=== PATIENT | male | born 1990 | race American Indian/Alaskan Native ===

== ENCOUNTER 2018-08-15 04:29 | Emergency (ER) | payer MEDICAID ==
[2018-08-15 04:41] VITALS: RESP 18; O2SAT 100
--- NOTE | 2018-08-15 05:13 | ED PDOC ---
HPI: Psych/Substance Abuse Time Seen by Provider: 08/15/18 04:42 Chief Complaint (Nursing): Psychiatric Evaluation Chief Complaint (Provider): Psychiatric Evaluation History Per: Patient History/Exam Limitations: no limitations Additional Complaint(s): 28 years old male with history of OCD brought in by EMS for psychiatric evaluation. Patient reports he was walking on street as "he was on a journey." He is homeless and states the world is his long term. Patient reports he is supposed to see a therapist but does not see one. Patient denies suicidal or homicidal ideation and auditory hallucinations. Pt denies any other complaints at this time Pt denies alcohol use, when asked about drug use he states "crystalinum.. nevermind" PMD: None provided Past Medical History Reviewed: Historical Data, Nursing Documentation, Vital Signs Vital Signs: Last Vital Signs Temp 97.8 F 08/15/18 04:32 Pulse 91 H 08/15/18 04:32 Resp 18 08/15/18 04:32 BP 141/96 H 08/15/18 04:32 Pulse Ox 100 08/15/18 04:32 Primary Care Provider: FAMILY PROVIDER,NO - Medical History Other PMH: OCD - Surgical History Surgical History: No Surg Hx - Family History Family History: States: Unknown Family Hx - Social History Alcohol: None (Patient states he wishes to drink alcohol) Drugs: Other (unsure) - Home Medications Home Medications: Ambulatory Orders Medication Instructions Recorded No Known Home Med 08/15/18 - Allergies Allergies/Adverse Reactions: Allergies Allergy/AdvReac Type Severity Reaction Status Date / Time No Known Allergies Allergy Verified 08/15/18 22:23 Review of Systems ROS Statement: Except As Marked, All Systems Reviewed And Found Negative Neurological: Negative for: Weakness, Numbness, Altered Mental Status, Headache Psych: Negative for: Anxiety, Suicidal ideation (or homicidal), Other (auditory hallucinations) Physical Exam - Reviewed Nursing Documentation Reviewed: Yes Vital Signs Reviewed: Yes - Physical Exam Appears: Positive for: No Acute Distress Head Exam: Positive for: ATRAUMATIC, NORMOCEPHALIC Skin: Positive for: Normal Color, Warm, Dry Eye Exam: Positive for: Normal appearance, EOMI, PERRL ENT: Positive for: Normal ENT Inspection Neck: Positive for: Normal, Painless ROM, Supple Cardiovascular/Chest: Positive for: Regular Rate, Rhythm. Negative for: Murmur Gastrointestinal/Abdominal: Positive for: Normal Exam, Soft. Negative for: Tenderness Back: Positive for: Normal Inspection. Negative for: L CVA Tenderness, R CVA Tenderness Extremity: Positive for: Normal ROM. Negative for: Pedal Edema, Deformity Neurological/Psych: Positive for: Awake, Alert, Oriented, Mood/Affect (Bizarre affect), Other (Responding to internal stimuli. Rhyming words. Flight of ideas.) - Laboratory Results Result Diagrams: 08/15/18 05:14 08/15/18 05:14 - ECG O2 Sat by Pulse Oximetry: 100 (RA) Pulse Ox Interpretation: Normal Medical Decision Making Medical Decision Making: Time: 0450 Initial plan: --Workup --Crisis evaluation 0600 pt told crisis screened that he has a history of bipolar and is visiting from [place], pending further crisis eval and maye, Dr. Huizar to wait for dispo Scribe Attestation: Documented by Franny Longo, acting as a scribe for NOLBERTO Kauffman. Provider Scribe Attestation: All medical record entries made by the Scribe were at my direction and personally dictated by me. I have reviewed the chart and agree that the record accurately reflects my personal performance of the history, physical exam, medical decision making, and the department course for this patient. I have also personally directed, reviewed, and agree with the discharge instructions and disposition. Disposition - Clinical Impression Clinical Impression: Stimulant abuse - Disposition Disposition Time: 06:00 Condition: STABLE Instructions: Drug Abuse and Drug Addiction (DC) Forms: [employer] ([place]er) Print Language: ESTONIAN - POA Present On Arrival: None
[2018-08-15 05:23] LABS: BASO % 0.8 % (0.0-2.0); EOS # 0.1 K/uL (0.0-0.7); EOS % 1.4 % (0.0-4.0); HEMOGLOBIN 12.6 g/dL (12.0-18.0); LYMPH # 2.2 K/uL (1.0-4.3); LYMPH % 37.4 % (20.0-40.0); MEAN CELL VOLUME 93.1 fl (80.0-94.0); MEAN CORPUSCULAR HEMOGLOBIN 30.2 pg (27.0-31.0); MEAN CORPUSCULAR HGB CONC 32.4 g/dL (33.0-37.0); MONO # 0.7 K/uL (0.0-0.8); MONO % 11.8 % (0.0-10.0); NEUT # 2.8 K/uL (1.8-7.0); NEUT % 48.6 % (50.0-75.0); NRBC % 0.1 % (0.0-0.0); RBC 4.18 Mil/uL (4.40-5.90); RED CELL DISTRIBUTION WIDTH 13.2 % (11.5-14.5); WHITE BLOOD COUNT 5.8 K/uL (4.8-10.8)
[2018-08-15 05:33] LABS: ALB/GLOB RATIO 1.3 (1.0-2.1); ALBUMIN 4.1 g/dL (3.5-5.0); ALT/SGPT 32 U/L (21-72); AST/SGOT 30 U/L (17-59); BLOOD UREA NITROGEN 14 mg/dl (9-20); CALCIUM 8.7 mg/dL (8.4-10.2); GFR NON-AFRICAN AMERICAN > 60
[2018-08-15 05:35] LABS: URINE BACTERIA RARE (<OCC); URINE BILIRUBIN NEGATIVE (NEGATIVE); URINE BLOOD NEGATIVE (NEGATIVE); URINE CLARITY SLIGHTY-CLOUDY (Clear); URINE COLOR AMBER (YELLOW); URINE GLUCOSE (UA) NEG (NEGATIVE); URINE LEUKOCYTE ESTERASE NEG Leu/uL (Negative); URINE PROTEIN 30 mg/dL (NEGATIVE)
[2018-08-15 06:10] LABS: BARBITURATES, UR NEGATIVE (NEGATIVE); BENZODIAZEPINES, UR NEGATIVE (NEGATIVE); OPIATES, UR NEGATIVE (NEGATIVE); PHENCYCLIDINE, UR NEGATIVE (NEGATIVE)
[2018-08-15 06:47] VITALS: BP 132/88; PULSE 86; TEMP 98.2
== END 2018-08-15 06:49 | disposition home or self-care (01) ==
LOC: H.ER 04:29
DX: F15.10 Other stimulant abuse, uncomplicated (principal); F42.9 Obsessive-compulsive disorder, unspecified; Z59.0 Homelessness